=== PATIENT | female | born 1990 | race American Indian/Alaskan Native ===

== ENCOUNTER 2018-06-08 14:41 | Emergency (ER) | payer SELFPAY ==
--- NOTE | 2018-06-08 15:39 | Emergency Department Report ---
Blank Doc - Documentation Documentation: 28 yo female reports vaginal bleeding x 7 weeks wilth lower abdominal cramps. Reports weakness and uses 10 super pad per day. Have large clots PE [id number] his initial assessment diagnostic orders/clinical plan/treatment (s) is/Are subject change based on patient's health status, clinical progression and re- assessment by fellow clinical providers in the ED. Further treatment and work-up at subsequent clinical providers discetion. Patient/guardians urged not to elope from s their condition may be serious if not clinically assessed and managed. Inital order include:labs
[2018-06-08 16:11] LABS: Basophils # (Auto) 0.1 K/mm3 (0.0-0.1); Basophils % (Auto) 0.8 % (0.0-1.8); Eosinophils # (Auto) 0.3 K/mm3 (0.0-0.4); Eosinophils % (Auto) 2.9 % (0.0-4.3); Hematocrit 32.2 % (30.3-42.9); Hemoglobin 10.6 gm/dl (10.1-14.3); Lymphocytes # (Auto) 2.9 K/mm3 (1.2-5.4); Lymphocytes % (Auto) 30.6 % (13.4-35.0); Mean Corpuscular HGB Conc 33 % (30-34); Mean Corpuscular Volume 83 fl (79-97); Monocytes # (Auto) 0.7 K/mm3 (0.0-0.8); Platelet Count 289 K/mm3 (140-440); Red Cell Distribution Width 15.1 % (13.2-15.2)
[2018-06-08 17:04] LABS: Bilirubin,Urine NEG (Negative); Blood,Urine LG (Negative); Color,Urine Yellow (Yellow); HCG Qualitative,Urine Negative (Negative); Urobilinogen,Urine < 2.0 mg/dL (<2.0)
[2018-06-08 17:05] LABS: RBC,Urine > 182.0 /HPF (0.0-6.0)
--- NOTE | 2018-06-08 18:11 | Emergency Department Report ---
ED General Adult HPI - General Chief complaint: Vaginal Bleeding Stated complaint: CLOTTING/BLEEDING FOR 7WEEKS Time Seen by Provider: 06/08/18 15:09 Source: patient Mode of arrival: Ambulatory Limitations: No Limitations - History of Present Illness Initial comments: 28-year-old -[place] obese female presents to emergency department complaining of continued vaginal bleeding was going on off and on for the last several weeks. States she's been been bleeding through several pads per day and states she noticed that she started feeling some weakness.. Does have cramps off and on reports no headaches, chest pain, shortness of breath, or any syncope. She has an appointment to follow up with [facility] this week, but was worried that she was anemic, so came into the ER today -: Gradual Radiation: non-radiation Consistency: constant Improves with: none Worsens with: none Associated Symptoms: denies: chest pain, cough, diaphoresis, fever/chills, malaise, seizure, syncope - Related Data Previous Rx's Medication Instructions Recorded Last Taken Type Fluconazole [Diflucan] 150 mg PO ONCE #1 tablet 06/08/18 Unknown Rx Nitrofurantoin Monohyd/M-Cryst 100 mg PO BID #20 capsule 06/08/18 Unknown Rx [Macrobid 100 mg Capsule] Allergies Allergy/AdvReac Type Severity Reaction Status Date / Time iodine Allergy Swelling Verified 06/08/18 14:43 ED Review of Systems ROS: Stated complaint: CLOTTING/BLEEDING FOR 7WEEKS Other details as noted in HPI Constitutional: denies: chills, fever Eyes: denies: eye pain, eye discharge, vision change ENT: denies: ear pain, throat pain Respiratory: denies: cough, shortness of breath, wheezing Cardiovascular: denies: chest pain, palpitations Endocrine: no symptoms reported Gastrointestinal: denies: abdominal pain, nausea, diarrhea Genitourinary: abnormal menses. denies: urgency, dysuria, discharge Musculoskeletal: denies: back pain, joint swelling, arthralgia Skin: denies: rash, lesions Neurological: denies: headache, weakness, paresthesias Psychiatric: denies: anxiety, depression Hematological/Lymphatic: denies: easy bleeding, easy bruising ED Past Medical Hx - Past Medical History Previous Medical History?: No - Surgical History Past Surgical History?: No - Social History Smoking Status: Never Smoker Substance Use Type: None - Medications Home Medications: Home Medications Medication Instructions Recorded Confirmed Last Taken Type Fluconazole [Diflucan] 150 mg PO ONCE #1 tablet 06/08/18 Unknown Rx Nitrofurantoin Monohyd/M-Cryst 100 mg PO BID #20 capsule 06/08/18 Unknown Rx [Macrobid 100 mg Capsule] ED Physical Exam - General Limitations: No Limitations General appearance: alert, in no apparent distress - Head Head exam: Present: atraumatic, normocephalic - Eye Eye exam: Present: normal appearance, PERRL, EOMI Pupils: Present: normal accommodation - ENT ENT exam: Present: mucous membranes moist - Neck Neck exam: Present: normal inspection - Respiratory Respiratory exam: Present: normal lung sounds bilaterally. Absent: respiratory distress - Cardiovascular Cardiovascular Exam: Present: regular rate, normal rhythm. Absent: systolic murmur, diastolic murmur, rubs, gallop - GI/Abdominal GI/Abdominal exam: Present: soft, normal bowel sounds - Extremities Exam Extremities exam: Present: normal inspection, normal capillary refill - Back Exam Back exam: Present: normal inspection, full ROM - Neurological Exam Neurological exam: Present: alert, oriented X3, CN II-XII intact. Absent: abnormal gait, motor sensory deficit, reflexes normal - Psychiatric Psychiatric exam: Present: normal affect, normal mood. Absent: anxious, flat affect, manic, suicidal ideation - Skin Skin exam: Present: warm, dry, intact, normal color. Absent: rash ED Course Vital Signs 06/08/18 06/08/18 14:50 18:13 Temperature 97.8 F 97.9 F Pulse Rate 93 H 82 Respiratory 18 15 Rate Blood Pressure 136/87 Blood Pressure 138/77 [Right] O2 Sat by Pulse 100 100 Oximetry ED Medical Decision Making - Lab Data Result diagrams: 06/08/18 15:52 - Medical Decision Making Morbidly obese [place] female with menorrhagia. No significant pelvic pain White Blood Cells in Her Urine and As Well As Some Yeast East Involvement. She Was Offered Pain Medication but She Did. She Did Refuse. She States She Is Worried about Anemia. However, Her Hemoglobin on This Visit Is Normal. States She Does Have a Long History of Anemia but Does Not the Case Today. She Still Tolerating Oral Still Eating and Drinking Normally. She does have planned follow-up with [facility] this week and I advised her on the importance of main taining that appointment Critical care attestation.: If time is entered above; I have spent that time in minutes in the direct care of this critically ill patient, excluding procedure time. ED Disposition Clinical Impression: Menorrhagia, UTI (urinary tract infection), Yeast UTI Disposition: TO HOME OR SELFCARE Is pt being admited?: No Does the pt Need Aspirin: No Condition: Stable Instructions: Urinary Tract Infection in Women (ED), Menorrhagia (ED) Additional Instructions: Keep your appointment with travel money advisor this sunday as scheduled. Return to ED for fever, severe pain, or worsening symptoms Prescriptions: Fluconazole [Diflucan] 150 mg PO ONCE #1 tablet Nitrofurantoin Monohyd/M-Cryst [Macrobid 100 mg Capsule] 100 mg PO BID #20 capsule Referrals: [facility] [Provider Group] - 3-5 Days
[2018-06-08 18:54] VITALS: BP 138/77
== END 2018-06-08 18:54 | disposition home or self-care (01) ==
LOC: ED 14:41
DX: N93.9 Abnormal uterine and vaginal bleeding, unspecified (principal); R10.30 Lower abdominal pain, unspecified; R53.1 Weakness; Z91.041 Radiographic dye allergy status
CPT/HCPCS: 36415; 81001; 81025; 85025